=== PATIENT | male | born 1950 | race Caucasian/White ===

== ENCOUNTER 2016-07-07 08:55 | Observation (INO) | payer OTHER ==
[2016-07-07] MEDS ORDERED: PROMETHAZINE HCL 12.5 MG in DEXTROSE 5 % IN WATER 50 ML IV ONE ×2 (09:26)
[2016-07-07 09:53] LABS: Prothrombin Time (Patient) 18.9 Seconds (9.4-11.4)
[2016-07-07 09:58] LABS: INR 1.82 INR (0.90-1.10)
[2016-07-07 10:00] LABS: Hematocrit 29.4 % (42.0-52.0); Hemoglobin 9.4 gm/dL (13.5-18.0); Mean Corpuscular Hemoglobin 27.2 pg (27-31); Mean Platelet Volume 10.3 fl (6.0-9.5); Neutrophil # 5.5 K/mm3 (1.3-6.0); Neutrophil % 74.2 % (42-75.0); Platelet Count 468 K/mm3 (150-450); Red Blood Count 3.46 M/mm3 (4.7-6.0); Red Cell Distribution Width 15.8 % (11.5-14.0); White Blood Count 7.4 K/mm3 (4.0-10.5)
[2016-07-07 10:17] LABS: ALT 28 U/L (19-67); AST 27 U/L (0-48); Albumin * 3.5 gm/dl (3.4-5.0); Alkaline Phosphatase * 111 U/L (50-170); Anion Gap 17.8 mmol/L (6.8-13.8); BUN/Creatinine Ratio 28.3 (9.0-21.6); Bilirubin, Total 0.6 mg/dL (0.0-1.1); Blood Urea Nitrogen 89 mg/dL (6-23); Ca. Corrected For Albumin 11.5 mg/dL (8.4-10.2); Calcium * 11.4 mg/dL (7.9-10.9); Carbon Dioxide 26.6 mmol/L (24-32.6); Chloride 98 mmol/L (97-106); Glucose * 198 mg/dL (70-110); Lipase 181 U/L (73-393); Potassium 5.4 mmol/L (3.4-4.6); Sodium 137 mmol/L (132-142)
[2016-07-07 10:20] LABS: Troponin I Less than 0.017 ng/ml (0.00-0.10)
[2016-07-07 11:01] LABS: Urine Bilirubin Negative (NEGATIVE); Urine Blood Negative /ul (NEGATIVE); Urine Ketone Negative (NEGATIVE); Urine Nitrite Negative (NEGATIVE); Urine Protein Negative (NEGATIVE); Urine Urobilinogen Normal (NORMAL); Urine pH 5.5 pH (5.0-7.0)
[2016-07-07 11:13] LABS: Urine Appearance Clear; Urine Bacteria None Seen; Urine Color Yellow; Urine RBC None Seen /hpf (0-5); Urine WBC None Seen /hpf (0-5)
[2016-07-07] MEDS ORDERED: FUROSEMIDE 10 MG/ML VIAL IV ONE (12:10)
[2016-07-07] MEDS ORDERED: FUROSEMIDE 10 MG/ML VIAL ONE (12:11)
--- NOTE | 2016-07-07 12:32 | ERNOTE ---
Dyspnea - Date Date of Service: 07/07/16 - General Presenting Symptoms: shortness of breath Time Seen by Provider: 07/07/16 09:12 Source: patient Exam Limitations: no limitations - Immun/Allergies/Home Medications Immunizations: IMMUNIZATION HX Immunizations Up to Date Yes History of Influenza Vaccine Yes Hx Pneumococcal Vaccination Yes Allergies/Adverse Reactions: Allergies oxycodone Adverse Reaction (Verified 07/07/16 09:05) Other Home Medications: HOME MEDICATIONS Ascorbic Acid [Vitamin C] 500 mg PO DAILY 05/24/14 [Last Taken Unknown] Aspirin 81 mg PO DAILY 05/24/14 [Last Taken Unknown] Atorvastatin Calcium [Lipitor] 80 mg PO DAILY 05/24/14 [Last Taken Unknown] Cyanocobalamin (Vitamin B-12) [Vitamin B-12] 250 mg PO DAILY 05/24/14 [Last Taken Unknown] Metformin HCl [Glumetza] 1,000 mg PO BID 05/24/14 [Last Taken Unknown] Multivitamin [Multi Vitamin Daily] 1 tab PO DAILY 05/24/14 [Last Taken Unknown] Nitroglycerin 0.4 mg SL Q5MIN 05/24/14 [Last Taken Unknown] PARoxetine HCL [Paxil] 20 mg PO DAILY 05/24/14 [Last Taken Unknown] Sildenafil Citrate [Viagra] 25 mg PO DAILY PRN 05/24/14 [Last Taken Unknown] Furosemide [Lasix] 40 mg PO BID 01/29/15 [Last Taken Unknown] Potassium Chloride [Klor-Con 10] 10 meq PO BID 01/29/15 [Last Taken Unknown] Sotalol HCl [Betapace] 120 mg PO BID 01/29/15 [Last Taken Unknown] Warfarin Sodium 7.5 mg PO MOWEFRSA 01/29/15 [Last Taken Unknown] Warfarin Sodium [Coumadin] 5 mg PO SUTUTH 01/29/15 [Last Taken Unknown] Chlorthalidone [Hygroton] 25 mg PO DAILY 06/29/15 [Last Taken Unknown] Fluticasone Propionate [Flonase] 2 sprays ANGELA QDIPM PRN 06/29/15 [Last Taken Unknown] Insulin Lispro [Humalog] 40 unit SQ AC 06/29/15 [Last Taken Unknown] amLODIPine BESYLATE [Norvasc] 10 mg PO DAILY 06/29/15 [Last Taken Unknown] Ondansetron [Zofran Odt] 4 mg PO Q6H PRN #20 tab 09/10/15 [Last Taken Unknown] Docusate Sodium 100 mg PO BID 07/02/16 [Last Taken Unknown] Hydromorphone 10 mg/50 ml-Ns 2 mg PO Q4H PRN 07/02/16 [Last Taken Unknown] Lisinopril [Zestril] 40 mg PO DAILY 07/07/16 [Last Taken Unknown] - History of Present Illness Narrative: Patient 2 weeks postoperative from knee surgery at [facility]. Over the last week he has been having increased generalized weakness, nausea, decreased oral intake and increased exertional SOB over the last 3 days. Has not seen anyone else for this. SOB worse with exertion. no acute onset of Sx. No fever. No CP. No acute abdominal pain. Severity: moderate Initiating event: Reports: other - post-operative 2 weeks Frequency of episodes: Reports: no prior episodes Modifying Factors - (Improves): Reports: other - SOB better with rest. Modifying Factors (Worsens): Reports: activity Associated Symptoms-Dyspnea: Reports: other - incerased LE swellain. Denies: fever/chills, chest pain/discomfort Review of Systems - Review of Systems Constitutional: Absent: fever EYE: Present: no symptoms reported Respiratory: Present: shortness of breath. Absent: cough Cardiology: Absent: chest pain Gastrointestinal/Abdominal: Present: nausea. Absent: abdominal pain Genitourinary: Absent: dysuria All Other Systems: All systems neg except as marked - Patient's Past Medical History Patient History - Medical: Arthritis, Diabetes Type 2 Patient History - Cardiac/Respiratory: Coronary Heart Disease, Hypertension, Hyperlipidemia, TIA Patient History - Cancer: No Hx of Cancer Patient History - Surgical Procedures: Cataracts, Coronary Bypass Surgery - Family History Mother Family History - Medical: Family History - Cardiac/Respiratory: CVA/Stroke, Myocardial Infarction Father Family History - Medical: Family History - Cardiac/Respiratory: History Unknown - Social History Living Situations: home Alcohol Use: none Drug Use: none Physical Exam - Physical Exam General Appearance: Present: alert, no apparent distress Eye Exam: Normal inspection: bilateral, PERRL: bilateral Ears, Nose, Throat: Present: normal ENT inspection Neck: Present: normal inspection Respiratory: Present: no respiratory distress, normal breath sounds, no accessory muscle use Cardiovascular/Chest: Present: regular rate, rhythm Gastrointestinal/Abdominal: Present: normal bowel sounds, nontender, soft, no organomegaly Back Exam: Absent: CVA tenderness (R), CVA tenderness (L) Extremity Exam: Present: other - bandages in place left knee. Edema noted bilaterally. nothgin clinically would suggest acute DVT. Neurological Exam: Present: alert, no motor/sensory deficits Skin Exam: Present: other - no evidence of cellulitis ED Progress - Results and Orders Patient's Lab Results:: I have reviewed the patient's lab results. - Vital Signs Patient's Vital Signs:: I have reviewed the patient's vital signs. Vital Signs: Vital Signs 07/07/16 07/07/16 07/07/16 09:00 09:16 09:33 Temperature 35.5 C L Pulse Rate 75 73 65 Respiratory 12 12 Rate Blood Pressure 94/52 119/43 O2 Sat by Pulse 96 96 Oximetry 07/07/16 07/07/16 07/07/16 09:41 10:02 10:23 Temperature Pulse Rate 63 64 63 Respiratory 18 13 15 Rate Blood Pressure 117/46 126/46 125/54 O2 Sat by Pulse 94 95 96 Oximetry 07/07/16 07/07/16 07/07/16 11:00 11:30 12:10 Temperature Pulse Rate 90 91 89 Respiratory 19 15 23 H Rate Blood Pressure 110/45 123/47 129/49 O2 Sat by Pulse 93 94 93 Oximetry 07/07/16 12:16 Temperature Pulse Rate 89 Respiratory Rate Blood Pressure 129/49 O2 Sat by Pulse Oximetry - EKG EKG: NSR EKG read: Interp. by me EKG Comments: NSR rate 67. non-specific ST/T wave changes, nothign to suggest STEMI. - X-Ray X-Ray #1 X-Ray: chest Interpretation: Reviewed by me X-ray Comments: radiology report reviewed - Progress/Reassessment Chief Complaint: Dyspnea Progress:: Re-examined Progress Note-Subjective: 07/07/16 12:31 I discussed the case with Dr Joshua. Given the increased BNP and renal insuff he recommends Lasix 80mg IV X 1 then admit obs. Patienbt agreeable to staying here for logistical reasons. Departure Clinical Impression: CHF (congestive heart failure), Renal insufficiency - Departure Disposition: [facility] Condition: Stable
[2016-07-07] MEDS ORDERED: SILDENAFIL CITRATE 25 MG PO PRN (13:25)
[2016-07-07] MEDS ORDERED: FLUTICASONE PROPIONATE 120 SPRAY INHALER NS PRN (13:25)
[2016-07-07] MEDS ORDERED: ACETAMINOPHEN 325 MG TABLET PO PRN (13:28)
[2016-07-07] MEDS ORDERED: NITROGLYCERIN 0.4 MG/TAB BTL SL PRN (13:30)
[2016-07-07] MEDS ORDERED: WARFARIN SODIUM 7.5 MG TABLET PO SCH (17:00)
[2016-07-07] MEDS: INSULIN LISPRO 100 UNITS/ML VIAL SC SCH (17:21)
--- NOTE | 2016-07-07 17:54 | HP ---
Chief Complaint - Chief Complaint Date of Service: 07/07/16 Time of Service: 20:12 Chief Complaint: Short of breath History of Present Illness: This a 66 y/o man who is 2 weeks postoperative from left knee surgery at [facility]. Over the last week he has been having increased generalized weakness, nausea, decreased oral intake and increased exertional SOB, and especially worsening over the last 3 days. For this reason he presented today to the [facility] ER. Has not seen anyone else for this. The SOB is worse with exertion. There was no acute onset of of these symptoms. No fever. No CP. No acute abdominal pain. He has also had orthopnea. About eighteen months ago, he had his right knee replaced. He lives at home with his . - Patient's Past Medical History Patient History - Medical: Arthritis, Diabetes Type 2 Insulin Dependent, Depression, Other - carotid artery disease, worse on the right.. Bilateral hearing loss. Patient History - Cardiac/Respiratory: Coronary Heart Disease, Hypertension, Hyperlipidemia, Myocardial Infarction, TIA Patient History - Cancer: No Hx of Cancer Patient History - Surgical Procedures: Cataracts, Coronary Bypass Surgery, Total Knee Replacement, Other - middle ear surgery - Family History Mother Family History - Medical: Family History - Cardiac/Respiratory: CVA/Stroke, Myocardial Infarction Father Family History - Medical: Family History - Cardiac/Respiratory: History Unknown - Social History Living Situations: home Smoking Status: Former smoker Have you smoked in the past 12 months: No Do you dip or chew tobacco: No Alcohol Use: occasionally Drug Use: none Review Of Systems (GEN) - Review of Systems Generalized/Overall Review: Present: Malaise, Fatigue EENTM: Present: No Symptoms Reported Respiratory: Present: Shortness of Breath, Orthopnea Cardiac: Present: Edema Abdominal: Present: No Symptoms Reported Genitourinary: Present: No Symptoms Reported Musculoskeletal: Present: Other - left knee pain, post op two weeks. Neurological: Present: No Symptoms Reported Skin: Present: No Symptoms Reported Endocrine: Present: No Symptoms Reported Misc: All systems neg except as marked Allergies/Adverse Reactions: Allergies Allergy/AdvReac Type Severity Reaction Status Date / Time oxycodone AdvReac Other Verified 07/07/16 13:39 Home Medications: HOME MEDICATIONS Ascorbic Acid [Vitamin C] 500 mg PO DAILY 05/24/14 [Last Taken Unknown] Aspirin 81 mg PO DAILY 05/24/14 [Last Taken Unknown] Atorvastatin Calcium [Lipitor] 80 mg PO HS 05/24/14 [Last Taken Unknown] Cyanocobalamin (Vitamin B-12) [Vitamin B-12] 250 mg PO DAILY 05/24/14 [Last Taken Unknown] Metformin HCl [Glumetza] 1,000 mg PO BID 05/24/14 [Last Taken Unknown] Multivitamin [Multi Vitamin Daily] 1 tab PO DAILY 05/24/14 [Last Taken Unknown] Nitroglycerin 0.4 mg SL Q5MIN PRN 05/24/14 [Last Taken Unknown] PARoxetine HCL [Paxil] 20 mg PO DAILY 05/24/14 [Last Taken Unknown] Sildenafil Citrate [Viagra] 50 mg PO DAILY PRN 05/24/14 [Last Taken Unknown] Furosemide [Lasix] 40 mg PO BID 01/29/15 [Last Taken Unknown] Potassium Chloride [Klor-Con 10] 10 meq PO BID 01/29/15 [Last Taken Unknown] Sotalol HCl [Betapace] 80 mg PO DAILY 01/29/15 [Last Taken Unknown] Warfarin Sodium 7.5 mg PO SUMOTUWEFRSA 01/29/15 [Last Taken Unknown] Warfarin Sodium [Coumadin] 10 mg PO TH 01/29/15 [Last Taken Unknown] Chlorthalidone [Hygroton] 25 mg PO DAILY 06/29/15 [Last Taken Unknown] Fluticasone Propionate [Flonase] 2 sprays ANGELA QDIPM PRN 06/29/15 [Last Taken Unknown] Insulin Lispro [Humalog] 40 unit SQ AC 06/29/15 [Last Taken Unknown] amLODIPine BESYLATE [Norvasc] 10 mg PO DAILY 06/29/15 [Last Taken Unknown] Docusate Sodium [Colace] 100 mg PO BID PRN 07/07/16 [Last Taken Unknown] Fexofenadine HCl [Tanisha Allergy] 180 mg PO DAILY 07/07/16 [Last Taken Unknown] HYDROmorphone HCL [Dilaudid] 2 mg PO Q4H PRN 07/07/16 [Last Taken Unknown] Insulin Detemir [Levemir Flextouch] 62 unit SQ QAM 07/07/16 [Last Taken Unknown] Insulin Detemir [Levemir Flextouch] 64 unit SQ QPM 07/07/16 [Last Taken Unknown] Insulin Detemir [Levemir] 55 unit SQ HS 07/07/16 [Last Taken Unknown] Insulin Detemir [Levemir] 57 unit SQ DAILY 07/07/16 [Last Taken Unknown] Lisinopril [Zestril] 40 mg PO DAILY 07/07/16 [Last Taken Unknown] Exam - Exam Vital Signs: Vital Signs - Last Taken Selected Entries 07/07/16 19:29 Temperature 36.8 C Temperature Oral Source Pulse Rate 71 Respiratory 18 Rate Blood Pressure 135/52 O2 Sat by Pulse 96 Oximetry Oxygen Delivery Room Air Method Constitutional: Present: Alert, Oriented x3, Cooperative, Well developed, No distress, Obese ENT Exam: Present: normal ENT inspection, pharynx normal, TMs normal, hard of hearing Eye Exam: bilateral eye: normal inspection, PERRL, EOMI Neck: Present: full range of motion, normal inspection Back Exam: Present: normal inspection, no CVA tenderness, no vertebral tenderness Respiratory: Present: lungs clear, no respiratory distress Cardiovascular/Chest: Present: regular rate, rhythm, no murmur Abdomen: Present: Normal bowel sounds, soft, nontender, nondistended, no rebound tenderness, no hepatospenomegaly, no masses, obese Extremity: Present: pedal edema, other - dressing on left knee, brace on left knee Skin Exam: Present: normal color, warm/dry, no cyanosis Lymphatic: Present: no adenopathy Neurologic: Present: normal cerebellar test, alert Appearance: Present: appropriate appearance, appropriate insight, neat, no memory impairment Eye contact: Present: cooperative, good eye contact, normal speech Thoughts: Present: normal thought pattern Diagnostic Studies: Laboratory Results WBC 7.4 K/mm3 (4.0-10.5) 07/07/16 09:35 RBC 3.46 M/mm3 (4.7-6.0) L 07/07/16 09:35 Hgb 9.4 gm/dL (13.5-18.0) L 07/07/16 09:35 Hct 29.4 % (42.0-52.0) L 07/07/16 09:35 MCV 85.0 fl (78-100) 07/07/16 09:35 MCH 27.2 pg (27-31) 07/07/16 09:35 MCHC 32.0 g/dl (32-36) 07/07/16 09:35 RDW 15.8 % (11.5-14.0) H 07/07/16 09:35 Plt Count 468 K/mm3 (150-450) H 07/07/16 09:35 MPV 10.3 fl (6.0-9.5) H 07/07/16 09:35 Immature Gran % (Auto) 0.70 % (0.001-0.429) H 07/07/16 09:35 Immature Gran # (Auto) 0.05 K/mm3 (0.000-0.0310) H 07/07/16 09:35 Neutrophils % 74.2 % (42-75.0) 07/07/16 09:35 Lymphocytes % 14.1 % (20-51) L 07/07/16 09:35 Monocytes % 7.3 % (0.0-9) 07/07/16 09:35 Eosinophils % 3.2 % (0.0-3.0) H 07/07/16 09:35 Basophils % 0.5 % (0.0-1.0) 07/07/16 09:35 Nucleated RBC % 0.0 k/mm3 (0-1) 07/07/16 09:35 Neutrophils # 5.5 K/mm3 (1.3-6.0) 07/07/16 09:35 Lymphocytes # 1.1 k/mm3 (1.5-3.5) L 07/07/16 09:35 Monocytes # 0.5 k/mm3 (0.0-1.0) 07/07/16 09:35 Eosinophils # 0.2 k/mm3 (0.0-0.7) 07/07/16 09:35 Absolute Basophils 0.0 k/mm3 (0.0-0.1) 07/07/16 09:35 PT 18.9 Seconds (9.4-11.4) H 07/07/16 09:35 INR (Anticoag Therapy) 1.82 INR (0.90-1.10) H 07/07/16 09:35 Sodium 137 mmol/L (132-142) 07/07/16 09:35 Plasma Sodium 139 mmol/L (130-142) 07/07/16 09:35 Potassium 5.4 mmol/L (3.4-4.6) H D 07/07/16 09:35 Chloride 98 mmol/L (97-106) 07/07/16 09:35 Carbon Dioxide 26.6 mmol/L (24-32.6) 07/07/16 09:35 Anion Gap 17.8 mmol/L (6.8-13.8) H 07/07/16 09:35 BUN 89 mg/dL (6-23) H D 07/07/16 09:35 Creatinine 3.14 mg/dL (0.4-1.4) H D 07/07/16 09:35 Est GFR (Non-Af Amer) 21 mL/min (60-130) L D 07/07/16 09:35 BUN/Creatinine Ratio 28.3 (9.0-21.6) H 07/07/16 09:35 Random Glucose 198 mg/dL (70-110) H 07/07/16 09:35 Lactic Acid, Venous 1.6 mmol/L (0.4-2.0) 07/07/16 13:00 Calcium 11.4 mg/dL (7.9-10.9) H 07/07/16 09:35 Calcium Adj for Albumin 11.5 mg/dL (8.4-10.2) H 07/07/16 09:35 Total Bilirubin 0.6 mg/dL (0.0-1.1) 07/07/16 09:35 AST 27 U/L (0-48) 07/07/16 09:35 ALT 28 U/L (19-67) 07/07/16 09:35 Alkaline Phosphatase 111 U/L (50-170) 07/07/16 09:35 Troponin I Less than 0.017 ng/ml (0.00-0.10) 07/07/16 09:35 B-Natriuretic Peptide 1534 pg/mL (5-175) H 07/07/16 09:35 Total Protein 7.0 gm/dL (6.2-8.2) 07/07/16 09:35 Albumin 3.5 gm/dl (3.4-5.0) 07/07/16 09:35 Lipase 181 U/L (73-393) 07/07/16 09:35 Urine Color Yellow 07/07/16 10:47 Urine Appearance Clear 07/07/16 10:47 Urine pH 5.5 pH (5.0-7.0) 07/07/16 10:47 Ur Specific Comfort 1.020 SP.GR. (1.005-1.030) 07/07/16 10:47 Urine Protein Negative mg/dL (NEGATIVE) 07/07/16 10:47 Urine Glucose (UA) Negative mg/dL (NEGATIVE) 07/07/16 10:47 Urine Ketones Negative mg/dL (NEGATIVE) 07/07/16 10:47 Urine Blood Negative /ul (NEGATIVE) 07/07/16 10:47 Urine Nitrate Negative (NEGATIVE) 07/07/16 10:47 Urine Bilirubin Negative mg/dl (NEGATIVE) 07/07/16 10:47 Urine Urobilinogen Normal EU/dl (NORMAL) 07/07/16 10:47 Ur Leukocyte Esterase Negative /ul (NEGATIVE) 07/07/16 10:47 Urine RBC None seen /hpf (0-5) 07/07/16 10:47 Urine WBC None seen /hpf (0-5) 07/07/16 10:47 Ur Epithelial Cells 5-10 /hpf (0-5) H 07/07/16 10:47 Urine Bacteria None seen (NONE) 07/07/16 10:47 Urine Culture Comments No culture indicated 07/07/16 10:47 Assessment/Plan - Narrative Narrative: IV lasix. Adjust meds. Follow labs. Estimate stay of at least one midnight. - Assessment/Plan (1) CAD (coronary artery disease) Problem: Chronic Qualifiers: Coronary Disease-Associated Artery/Lesion type: bypass graft [place] vs. transplanted heart: [place] heart Associated angina: without angina Qualified Code(s): I25.810 - Atherosclerosis of coronary artery bypass graft(s) without angina pectoris (2) Osteoarthritis Problem: Chronic Qualifiers: Osteoarthritis location: multiple joints Osteoarthritis type: primary Qualified Code(s): M15.0 - Primary generalized (osteo)arthritis (3) CVA (cerebral vascular accident) Problem: Chronic Qualifiers: CVA mechanism: unspecified Qualified Code(s): I63.9 - Cerebral infarction, unspecified (4) Myocardial infarct, old Problem: Chronic (5) CHF (congestive heart failure) Problem: Acute Qualifiers: Congestive heart failure type: unspecified congestive heart failure type Congestive heart failure chronicity: acute on chronic Qualified Code(s): I50.9 - Heart failure, unspecified (6) Renal insufficiency Problem: Acute (7) S/P total knee arthroplasty Problem: Acute Qualifiers: Laterality: left Qualified Code(s): Z96.652 - Presence of left artificial knee joint
[2016-07-07] MEDS ORDERED: INSULIN DETEMIR 100 UNITS/ML VIAL SC SCH (21:00)
[2016-07-07] MEDS ORDERED: ROSUVASTATIN CALCIUM 10 MG TABLET PO SCH (21:00)
[2016-07-07] MEDS: SOTALOL HCL 80 MG TABLET PO SCH (22:06)
[2016-07-07] MEDS: FUROSEMIDE 10 MG/ML VIAL IV SCH (22:07)
[2016-07-07] MEDS: DOCUSATE SODIUM 100 MG CAPSULE PO SCH (22:08)
[2016-07-07] MEDS ORDERED: INSULIN DETEMIR 100 UNITS/ML VIAL SC ONE (22:14)
[2016-07-08 06:11] LABS: Hematocrit 30.2 % (42.0-52.0); Hemoglobin 9.7 gm/dL (13.5-18.0); Mean Cell Volume 83.7 fl (78-100); Mean Corpuscular Hemoglobin 26.9 pg (27-31); Mean Corpuscular Hgb Conc 32.1 g/dl (32-36); Mean Platelet Volume 9.5 fl (6.0-9.5); Neutrophil # 5.7 K/mm3 (1.3-6.0); Neutrophil % 68.6 % (42-75.0); Platelet Count 440 K/mm3 (150-450); Red Blood Count 3.61 M/mm3 (4.7-6.0); Red Cell Distribution Width 15.6 % (11.5-14.0); White Blood Count 8.3 K/mm3 (4.0-10.5)
[2016-07-08 06:33] LABS: Prothrombin Time (Patient) 20.3 Seconds (9.4-11.4)
[2016-07-08 06:39] LABS: INR 1.95 INR (0.90-1.10)
[2016-07-08 06:48] LABS: Anion Gap 15.7 mmol/L (6.8-13.8); BUN/Creatinine Ratio 30.8 (9.0-21.6); Calcium * 10.2 mg/dL (7.9-10.9); Carbon Dioxide 27.2 mmol/L (24-32.6); Estimated Creat Clear 26.4; Potassium 3.9 mmol/L (3.4-4.6); T4 Free * 1.47 ng/dL (0.76-1.46); TSH * 0.691 uIU/mL (0.358-3.74)
[2016-07-08] MEDS: INSULIN LISPRO 100 UNITS/ML VIAL SC SCH (06:49)
[2016-07-08] MEDS ORDERED: ASPIRIN 81 MG TABLET.DR PO SCH (09:00)
[2016-07-08] MEDS ORDERED: amLODIPine BESYLATE 10 MG TABLET PO SCH (09:00)
[2016-07-08] MEDS ORDERED: CYANOCOBALAMIN 1,000 MCG TABLET PO SCH (09:00)
[2016-07-08] MEDS ORDERED: INSULIN DETEMIR 100 UNITS/ML VIAL SC SCH (09:00)
[2016-07-08] MEDS ORDERED: LISINOPRIL 40 MG TABLET PO SCH (09:00)
[2016-07-08] MEDS ORDERED: MULTIVITAMINS 1 CAP CAPSULE PO SCH (09:00)
[2016-07-08] MEDS ORDERED: PARoxetine HCL 20 MG TABLET PO SCH (09:00)
[2016-07-08 09:11] VITALS: BP 105/49
[2016-07-08] MEDS: FUROSEMIDE 10 MG/ML VIAL IV SCH ×2 (09:30→10:38)
[2016-07-08] MEDS: SOTALOL HCL 80 MG TABLET PO SCH (09:32)
[2016-07-08] MEDS: DOCUSATE SODIUM 100 MG CAPSULE PO SCH (09:45)
--- NOTE | 2016-07-08 10:01 | DS ---
(1) CAD (coronary artery disease) Problem: Chronic Qualifiers: Coronary Disease-Associated Artery/Lesion type: bypass graft [place] vs. transplanted heart: [place] heart Associated angina: without angina Qualified Code(s): I25.810 - Atherosclerosis of coronary artery bypass graft(s) without angina pectoris (2) Osteoarthritis Problem: Chronic Qualifiers: Osteoarthritis location: multiple joints Osteoarthritis type: primary Qualified Code(s): M15.0 - Primary generalized (osteo)arthritis (3) CVA (cerebral vascular accident) Problem: Chronic Qualifiers: CVA mechanism: unspecified Qualified Code(s): I63.9 - Cerebral infarction, unspecified (4) Myocardial infarct, old Problem: Chronic (5) CHF (congestive heart failure) Diagnosis(s): Echo results from this hospital stay still pending. Problem: Acute Qualifiers: Congestive heart failure type: unspecified congestive heart failure type Congestive heart failure chronicity: acute on chronic Qualified Code(s): I50.9 - Heart failure, unspecified (6) Renal insufficiency Problem: Acute (7) S/P total knee arthroplasty Problem: Acute Qualifiers: Laterality: left Qualified Code(s): Z96.652 - Presence of left artificial knee joint Description of Stay: Treated with IV lasix. Diuresed well and improved by symptoms and signs. Much better today. Echo done while here, results pending. Procedures Performed: none Discharge Disposition: Home self care Disposition: Home self-care Condition: Good Discharge Activity: Activity as tolerated Discharge Diet: Consistent carbs, Low salt Problem Oriented Discharge Instructions to Patient/Family: CHF Patient Instructions, Heart Failure, [id number] Additional Patient Instructions (free text): Followup with your primary care doctor in 1 week. CBC BMP and protime in 4 days. Prescriptions (Any new or edited meds): Furosemide [Lasix] 80 mg PO BID #60 tablet Potassium Chloride [Klor-Con 10] 20 meq PO BID #60 tablet.er Warfarin Sodium [Coumadin] 5 mg PO DAILY #1 tablet Warfarin Sodium [Coumadin] 7.5 mg PO DAILY #1 tablet Complete Home Medications List: Complete Home Medication List: Ascorbic Acid [Vitamin C] 500 mg PO DAILY 05/24/14 Aspirin 81 mg PO DAILY 05/24/14 Atorvastatin Calcium [Lipitor] 80 mg PO HS 05/24/14 Cyanocobalamin (Vitamin B-12) [Vitamin B-12] 250 mg PO DAILY 05/24/14 Multivitamin [Multi-Vitamin Daily] 1 tab PO DAILY 05/24/14 Nitroglycerin 0.4 mg SL Q5MIN PRN 05/24/14 PARoxetine HCL [Paxil] 20 mg PO DAILY 05/24/14 Sildenafil Citrate [Viagra] 50 mg PO DAILY PRN 05/24/14 Sotalol HCl [Betapace] 80 mg PO DAILY 01/29/15 Fluticasone Propionate [Flonase] 2 sprays ANGELA QDIPM PRN 06/29/15 Insulin Lispro [Humalog Kwikpen U-100] 40 unit SQ AC 06/29/15 amLODIPine BESYLATE [Norvasc] 10 mg PO DAILY 06/29/15 Docusate Sodium [Colace] 100 mg PO BID PRN 07/07/16 Fexofenadine HCl [Tanisha Allergy] 180 mg PO DAILY 07/07/16 Insulin Detemir [Levemir] 55 unit SQ HS 07/07/16 Insulin Detemir [Levemir] 57 unit SQ DAILY 07/07/16 Lisinopril [Zestril] 40 mg PO DAILY 07/07/16 Acetaminophen [Tylenol] 650 mg PO QID PRN #0 tablet 07/08/16 Docusate Sodium [Colace] 100 mg PO BID capsule 07/08/16 Furosemide [Lasix] 80 mg PO BID #60 tablet 07/08/16 Potassium Chloride [Klor-Con 10] 20 meq PO BID #60 tablet.er 07/08/16 Sotalol HCl [Betapace] 120 mg PO BID tablet 07/08/16 Warfarin Sodium [Coumadin] 5 mg PO DAILY #1 tablet 07/08/16 Warfarin Sodium [Coumadin] 7.5 mg PO DAILY #1 tablet 07/08/16
--- NOTE | 2016-07-08 12:56 | ECHO ---
This report is available in the EMR
[2016-07-08] MEDS ORDERED: WARFARIN SODIUM 5 MG TABLET PO SCH (17:00)
== END 2016-07-08 11:02 | disposition home or self-care (01) ==
LOC: ER 08:55 → MS 12:18
PROVIDERS: ADMIT Allergy & Immunology; ATTEND Allergy & Immunology
DX: I50.9 Heart failure, unspecified (principal); N28.9 Disorder of kidney and ureter, unspecified; Z98.890 Other specified postprocedural states; I25.810 Atherosclerosis of coronary artery bypass graft(s) without angina pectoris; M15.0 Primary generalized (osteo)arthritis; Z96.652 Presence of left artificial knee joint; Z86.73 Personal history of transient ischemic attack (TIA), and cerebral infarction without residual deficits; I25.2 Old myocardial infarction; Z87.891 Personal history of nicotine dependence; Z95.1 Presence of aortocoronary bypass graft; E11.9 Type 2 diabetes mellitus without complications; Z79.4 Long term (current) use of insulin; Z79.84 Long term (current) use of oral hypoglycemic drugs; Z79.01 Long term (current) use of anticoagulants; Z79.82 Long term (current) use of aspirin

== ENCOUNTER 2017-02-24 04:21 | Emergency (ER) | payer OTHER ==
--- NOTE | 2017-02-24 05:55 | ERNOTE ---
Time Seen by Provider: 02/24/17 05:38 Stated Complaint: SINUS PRESSURE Presenting Symptoms:: sore throat, runny nose Source: patient Exam Limitations: no limitations Immunizations: IMMUNIZATION HX Immunizations Up to Date Yes History of Influenza Vaccine Yes Hx Pneumococcal Vaccination Yes Allergies/Adverse Reactions: Allergies oxycodone Adverse Reaction (Verified 02/24/17 04:31) Other Home Medications: HOME MEDICATIONS Ascorbic Acid [Vitamin C] 500 mg PO DAILY 05/24/14 [Last Taken Unknown] Aspirin 81 mg PO DAILY 05/24/14 [Last Taken Unknown] Atorvastatin Calcium [Lipitor] 80 mg PO HS 05/24/14 [Last Taken Unknown] Cyanocobalamin (Vitamin B-12) [Vitamin B-12] 250 mg PO DAILY 05/24/14 [Last Taken Unknown] Multivitamin [Multi-Vitamin Daily] 1 tab PO DAILY 05/24/14 [Last Taken Unknown] Nitroglycerin 0.4 mg SL Q5MIN PRN 05/24/14 [Last Taken Unknown] PARoxetine HCL [Paxil] 20 mg PO DAILY 05/24/14 [Last Taken Unknown] Sildenafil Citrate [Viagra] 50 mg PO DAILY PRN 05/24/14 [Last Taken Unknown] Sotalol HCl [Betapace] 80 mg PO DAILY 01/29/15 [Last Taken Unknown] Fluticasone Propionate [Flonase] 2 sprays ANGELA QDIPM PRN 06/29/15 [Last Taken Unknown] Insulin Lispro [Humalog Kwikpen U-100] 40 unit SQ AC 06/29/15 [Last Taken Unknown] amLODIPine BESYLATE [Norvasc] 10 mg PO DAILY 06/29/15 [Last Taken Unknown] Docusate Sodium [Colace] 100 mg PO BID PRN 07/07/16 [Last Taken Unknown] Fexofenadine HCl [[place] Allergy] 180 mg PO DAILY 07/07/16 [Last Taken Unknown] Insulin Detemir [Levemir] 55 unit SQ HS 07/07/16 [Last Taken Unknown] Insulin Detemir [Levemir] 57 unit SQ DAILY 07/07/16 [Last Taken Unknown] Lisinopril [Zestril] 40 mg PO DAILY 07/07/16 [Last Taken Unknown] Acetaminophen [Tylenol] 650 mg PO QID PRN #0 tablet 07/08/16 [Last Taken Unknown ] Docusate Sodium [Colace] 100 mg PO BID capsule 07/08/16 [Last Taken Unknown] Furosemide [Lasix] 80 mg PO BID #60 tablet 07/08/16 [Last Taken Unknown] Potassium Chloride [Klor-Con 10] 20 meq PO BID #60 tablet.er 07/08/16 [Last Taken Unknown] Sotalol HCl [Betapace] 120 mg PO BID tablet 07/08/16 [Last Taken Unknown] Warfarin Sodium [Coumadin] 5 mg PO DAILY #1 tablet 07/08/16 [Last Taken Unknown] Warfarin Sodium [Coumadin] 7.5 mg PO DAILY #1 tablet 07/08/16 [Last Taken Unknown] - History of Present Ilness Narrative: Pt feels his allergies are getting worse. Has not been taking his [place] Review of Systems - Review of Systems Constitutional: Absent: fever, chills EYE: Present: no symptoms reported ENT: Present: See HPI. Absent: ear pain Respiratory: Present: cough. Absent: shortness of breath Cardiology: Absent: chest pain Gastrointestinal/Abdominal: Absent: nausea, vomiting Musculoskeletal: Absent: muscle pain, muscle stiffness Skin: Absent: rash Neurological: Present: no symptoms reported Endocrine: Present: no symptoms reported Hematologic/Lymphatic: Present: no symptoms reported Psych: Present: no symptoms reported - Patient's Past Medical History Patient History - Medical: Arthritis, Diabetes Type 2 Insulin Dependent, Depression, Other Patient History - Cardiac/Respiratory: Angina, Atrial Fibrillation, Arrhythmias , Coronary Heart Disease, CVA/Stroke, Hypertension, Myocardial Infarction, TIA, Other Patient History - Cancer: No Hx of Cancer Patient History - Surgical Procedures: Cataracts, Coronary Bypass Surgery, Total Knee Replacement, Other Patient History - Other: None - Family History Mother Family History - Medical: Family History - Cardiac/Respiratory: CVA/Stroke, Myocardial Infarction Father Family History - Medical: Family History - Cardiac/Respiratory: History Unknown - Social History Living Situations: home Abuse History: No History of abuse Psych History: Hx of Depression Smoking Status: Former smoker Alcohol Use: none Drug Use: none - Immunizations Immunizations Up to Date: Yes Hx Pneumococcal Vaccination: Yes History of Influenza Vaccine: Yes Physical Exam - Physical Exam General Appearance: Present: wd/wn, alert, no apparent distress Head Exam: Present: normal inspection, no evidence of injury Eye Exam: Normal inspection: bilateral, PERRL: bilateral, EOMI: bilateral Ears, Nose, Throat: Present: nasal congestion, normal pharynx Neck: Present: normal inspection, nontender Respiratory: Present: no respiratory distress, normal breath sounds, lungs clear Cardiovascular/Chest: Present: regular rate, rhythm, no murmur Extremity Exam: Present: normal inspection, normal range of motion, no edema Neurological Exam: Present: alert, oriented, normal mood/affect Skin Exam: Present: normal color, warm/dry Lymphatic Exam: Present: no adenopathy ED Progress - Vital Signs Vital Signs: Vital Signs 02/24/17 04:27 Temperature 36.8 C Pulse Rate 77 Respiratory 20 Rate Blood Pressure 140/61 O2 Sat by Pulse 97 Oximetry - Progress/Reassessment Chief Complaint: Upper Respiratory Symptoms Departure - Departure Clinical Impression: Allergic rhinitis Disposition: Home self-care Condition: Good Instructions: Allergic Rhinitis Additional Instructions: Start back on your [place] and take it every day until symptoms resolve
[2017-02-24 06:04] VITALS: BP 149/57
== END 2017-02-24 06:01 | disposition home or self-care (01) ==
LOC: ER 04:21
DX: J30.9 Allergic rhinitis, unspecified (principal); I25.2 Old myocardial infarction; Z87.891 Personal history of nicotine dependence

== ENCOUNTER 2017-08-30 19:37 | Observation (INO) | payer MEDICARE, MEDICAID ==
[2017-08-30] MEDS ORDERED: METHYLPREDNISOLONE SOD SUCC/PF 125 MG/2 ML VIAL IV ONE (20:24)
[2017-08-30] MEDS ORDERED: ALBUTEROL SULFATE 2.5 MG/0.5 ML VIAL.NEB IH ONE ×2 (20:24→20:42)
[2017-08-30] MEDS ORDERED: METHYLPREDNISOLONE SOD SUCC/PF 125 MG/2 ML VIAL ONE (20:33)
--- NOTE | 2017-08-30 20:35 | ERNOTE ---
Date of Service: 08/30/17 Time Seen by Provider: 08/30/17 20:23 Stated Complaint: URI Presenting Symptoms:: cough, runny nose, fever Source: patient Immunizations: IMMUNIZATION HX Immunizations Up to Date Yes History of Influenza Vaccine Yes Hx Pneumococcal Vaccination Yes Allergies/Adverse Reactions: Allergies oxycodone Adverse Reaction (Verified 08/30/17 19:51) Other Home Medications: HOME MEDICATIONS Aspirin 81 mg PO DAILY 05/24/14 [Last Taken Unknown] Atorvastatin Calcium [Lipitor] 80 mg PO HS 05/24/14 [Last Taken Unknown] Cyanocobalamin (Vitamin B-12) [Vitamin B-12] 250 mg PO DAILY 05/24/14 [Last Taken Unknown] Multivitamin [Multi-Vitamin Daily] 1 tab PO DAILY 05/24/14 [Last Taken Unknown] Nitroglycerin 0.4 mg SL Q5MIN PRN 05/24/14 [Last Taken Unknown] PARoxetine HCL [Paxil] 20 mg PO DAILY 05/24/14 [Last Taken Unknown] Fluticasone Propionate [Flonase] 2 sprays ANGELA QDIPM PRN 06/29/15 [Last Taken Unknown] amLODIPine BESYLATE [Norvasc] 10 mg PO DAILY 06/29/15 [Last Taken Unknown] Fexofenadine HCl [Tanisha Allergy] 180 mg PO DAILY 07/07/16 [Last Taken Unknown] Lisinopril [Zestril] 40 mg PO DAILY 07/07/16 [Last Taken Unknown] Acetaminophen [Tylenol] 650 mg PO QID PRN #0 tablet 07/08/16 [Last Taken Unknown ] Furosemide [Lasix] 80 mg PO BID #60 tablet 07/08/16 [Last Taken Unknown] Potassium Chloride [Klor-Con 10] 20 meq PO BID #60 tablet.er 07/08/16 [Last Taken Unknown] Insulin Lispro [Humalog] 0 - 100 units SC ACHS 08/30/17 [Last Taken Unknown] Insulin Regular, Human [Novolin R] 50 unit IJ HS 08/30/17 [Last Taken Unknown] Warfarin Sodium [Coumadin] 7.5 mg PO 2XW 08/30/17 [Last Taken Unknown] Warfarin Sodium [Coumadin] 10 mg PO DAILY 08/30/17 [Last Taken Unknown] - History of Present Ilness Narrative: This is a 67-year-old gentleman who comes to the emergency department complaining of 2 weeks of a "cold" patient says for last couple of weeks she's had a copious runny nose with clear drainage. He says he's been coughing frequently. Over the last 48 hours he's been coughing much more. Productive green and yellow sputum. Over the last 24 hours he's also developed some dyspnea at rest. Coughing seems to be worse at night. Nothing makes it worse. He says he had a subjective fever a couple of days ago but did not take his temperature. Had a little bit of nausea this morning. No vomiting no diarrhea. Patient has a little bit of a sore throat. Eating and drinking well and urinating and defecating well. Patient does have a history of congestive heart failure and is a bit concerned that this is CHF. He did have some mild chest tightness left sided intermittently but he thinks this is from the coughing. It is markedly different from the previous times when he sat heart issues. No radiation of the pain to the back neck arm or jaw. No diaphoresis. Timing: getting worse Review of Systems - Review of Systems Constitutional: Present: See HPI, recent illness, fever EYE: Present: no symptoms reported ENT: Present: nasal drainage, sore throat Respiratory: Present: See HPI, shortness of breath, cough, wheezing Cardiology: Present: See HPI, chest pain Gastrointestinal/Abdominal: Present: See HPI, nausea Genitourinary: Present: no symptoms reported Musculoskeletal: Present: no symptoms reported Skin: Present: no symptoms reported Neurological: Present: no symptoms reported Endocrine: Present: no symptoms reported Hematologic/Lymphatic: Present: no symptoms reported Psych: Present: no symptoms reported All Other Systems: All systems neg except as marked - Patient's Past Medical History Patient History - Medical: Arthritis, Diabetes Type 2 Insulin Dependent, Depression, Other Patient History - Cardiac/Respiratory: Angina, Atrial Fibrillation, Arrhythmias , Coronary Heart Disease, CVA/Stroke, Hypertension, Myocardial Infarction, TIA, Other Patient History - Cancer: No Hx of Cancer Patient History - Surgical Procedures: Cataracts, Coronary Bypass Surgery, Total Knee Replacement, Other Patient History - Other: None - Family History Mother Family History - Medical: Family History - Cardiac/Respiratory: CVA/Stroke, Myocardial Infarction Father Family History - Medical: Family History - Cardiac/Respiratory: History Unknown - Social History Living Situations: home Abuse History: No History of abuse Psych History: Hx of Depression Smoking Status: Former smoker Do you dip or chew tobacco: No Alcohol Use: occasionally Drug Use: none - Immunizations Immunizations Up to Date: Yes Hx Pneumococcal Vaccination: Yes History of Influenza Vaccine: Yes Physical Exam - Physical Exam General Appearance: Present: wd/wn, alert, no apparent distress Head Exam: Present: normal inspection, no evidence of injury Eye Exam: Normal inspection: bilateral Ears, Nose, Throat: Present: normal ENT inspection, normal pharynx, other - no tonsillar exudate nor is there any hypertrophy Neck: Present: normal inspection, nontender Respiratory: Present: no respiratory distress, no accessory muscle use, chest nontender, expiration (prolonged), other - slightly tachypneic. This decreased air entry throughout. End expiratory wheezing throughout. Frequent cough which is bronchitic and nonproductive. No accessory muscle use.. Absent: normal breath sounds, lungs clear Cardiovascular/Chest: Present: regular rate, rhythm, other - 2/6 systolic murmur best heard over the right upper sternal border Gastrointestinal/Abdominal: Present: normal bowel sounds, nontender, nondistended, soft Rectal Exam: Present: deferred Male Genitals Exam: Present: deferred Back Exam: Present: normal inspection, normal range of motion, no CVA tenderness , no vertebral tenderness Extremity Exam: Present: normal inspection, non-tender, normal range of motion, other - perhaps a trace of pretibial edema. Absent: no edema Neurological Exam: Present: alert, oriented, normal mood/affect, no motor/ sensory deficits ED Progress - Results and Orders Patient's Lab Results:: I have reviewed the patient's lab results. - Vital Signs Patient's Vital Signs:: I have reviewed the patient's vital signs. Vital Signs: Vital Signs 08/30/17 08/30/17 19:41 20:00 Temperature 37.3 C Pulse Rate 98 99 Respiratory 26 H Rate Blood Pressure 141/67 O2 Sat by Pulse 95 Oximetry - EKG EKG: other - EKG demonstrates atrial fibrillation controlled ventricular response and 98, QRS axis is normal, no ST segment deviation to indicate acute OH - X-Ray X-Ray #1 X-Ray: chest - right middle lobe infiltrate. Really appears to be more confluence of perivascular cuffing. Interpretation: Interp. by me - Progress/Reassessment Chief Complaint: Upper Respiratory Symptoms Progress:: Re-examined Progress Note-Subjective: 08/30/17 22:10 Patient has been on a breathing treatment for an hour. He has really had no significant improvement. Plan - Plan Plan: Because he is still having such a tight chest, wheezing, oxygen saturation of 92 % on room air N think it is appropriate to keep him on the antibiotics and keep him in the hospital overnight he is okay with this plan Departure Clinical Impression: Pneumonia - Departure Disposition: [facility] swing bed (SNF) Condition: Good
[2017-08-30 20:45] LABS: Hematocrit 34.4 % (42.0-52.0); Hemoglobin 11.1 gm/dL (13.5-18.0); Mean Cell Volume 78.7 fl (78-100); Mean Corpuscular Hemoglobin 25.4 pg (27-31); Mean Corpuscular Hgb Conc 32.3 g/dl (32-36); Mean Platelet Volume 10.4 fl (6.0-9.5); Neutrophil % 86.9 % (42-75.0); Platelet Count 247 K/mm3 (150-450); Red Blood Count 4.37 M/mm3 (4.7-6.0); Red Cell Distribution Width 16.6 % (11.5-14.0); White Blood Count 13.8 K/mm3 (4.0-10.5)
[2017-08-30 21:02] LABS: ALT 23 U/L (19-67); AST 18 U/L (0-48); Albumin * 3.5 gm/dl (3.4-5.0); Alkaline Phosphatase * 109 U/L (50-170); Anion Gap 15.7 mmol/L (6.8-13.8); BUN/Creatinine Ratio 14.3 (9.0-21.6); Bilirubin, Total 0.9 mg/dL (0.0-1.1); Blood Urea Nitrogen 28 mg/dL (6-23); Ca. Corrected For Albumin 8.8 mg/dL (8.4-10.2); Calcium * 8.7 mg/dL (7.9-10.9); Carbon Dioxide 26.2 mmol/L (24-32.6); Chloride 103 mmol/L (97-106); Glucose * 171 mg/dL (70-110); Potassium 3.9 mmol/L (3.4-4.6); Sodium 141 mmol/L (132-142); Total Protein 7.3 gm/dL (6.2-8.2)
[2017-08-30] MEDS ORDERED: AZITHROMYCIN 250 MG TABLET PO ONE (21:06)
[2017-08-30 21:09] LABS: Troponin I Less than 0.017 ng/ml (0.00-0.10)
[2017-08-30 21:26] LABS: Prothrombin Time (Patient) 39.8 Seconds (9.0-11.0)
[2017-08-30] MEDS ORDERED: AZITHROMYCIN 250 MG TABLET ONE (21:30)
[2017-08-30 21:32] LABS: INR 3.93 INR (0.90-1.10)
--- NOTE | 2017-08-30 23:05 | HP ---
Chief Complaint - Chief Complaint Date of Service: 08/30/17 Time of Service: 23:00 Chief Complaint: " Worsening SOB & Coughing". Source of HPI- Pt; reliable, ERP report, History of Present Illness: Mr. Hathaway is a 67-yr-old WM who is normally seen by multiple specialty providers at the [facility]. His PMH is significant for Asthma, CAD, CVA, CHF, CKD stage 3, Depression, DM II, HTN, HLD, ME, Osteoathritis & PVD. Pt states that for the last one week, he has had SOB, but for a couple of days, his dyspnea progressed to being worse even with a short ambulation distance from the bedroom to his bathroom. He reports having worsening cough as well and had been bringing up thick yellow-greenish phlegm. He is unsure of fevers, but states that he has had occasional chills. He states that one week before developing SOB , he had URI symptoms. He was not getting any better with his SOB and chose to come to the ED tonight. Work-up at the ED involved CXR which showed he had RML/ RLL Pneumonia (official radiology report is pending). His dyspnea did not improve in spite of treatment with Nebulizers and IV corticosteroids and POX levels maintained 90-91% RA. Laboratory studies showed WBC --> 13,800 with a LT shift, BUN/CR--> 28/1.96, INR--> 3.96, BNP--> . He has a CURB- 65 score of 2 and with his major comorbidities, he will require a minimum stay of 2 midnights. - Patient's Past Medical History Patient History - Medical: Arthritis, Diabetes Type 2 Insulin Dependent, Depression, Other Patient History - Cardiac/Respiratory: Angina, Atrial Fibrillation, Arrhythmias , Coronary Heart Disease, CVA/Stroke, Hypertension, Myocardial Infarction, TIA, Other Patient History - Cancer: No Hx of Cancer Patient History - Surgical Procedures: Cataracts, Coronary Bypass Surgery, Total Knee Replacement, Other Patient History - Other: None - Family History Mother Family History - Medical: Family History - Cardiac/Respiratory: CVA/Stroke, Myocardial Infarction Father Family History - Medical: Family History - Cardiac/Respiratory: History Unknown - Social History Living Situations: home Abuse History: No History of abuse Psych History: Hx of Depression Smoking Status: Former smoker Do you dip or chew tobacco: No Alcohol Use: occasionally Drug Use: none - Immunizations Immunizations Up to Date: Yes Hx Pneumococcal Vaccination: Yes History of Influenza Vaccine: Yes Review Of Systems (GEN) - Review of Systems Generalized/Overall Review: Present: Weakness, Chills, Malaise. Absent: Fever EENTM: Present: Nose Congestion. Absent: Eye Pain, Blurred Vision, Tearing Respiratory: Present: Cough, Shortness of Breath. Absent: Orthopnea Cardiac: Absent: Chest Pain, Edema, Palpitations, Syncope Abdominal: Absent: Nausea, Vomiting, Hematemesis Genitourinary: Absent: Burning, Itching Musculoskeletal: Absent: Joint Pain, Back Pain, Joint Swelling Neurological: Absent: Headache, Anxiety, Depressed Skin: Absent: Dryness, Lesions, Lumps Endocrine: Present: Intolerance to Heat. Absent: Increased Hunger, Flushing, Increased Thirst Misc: All systems neg except as marked Allergies/Adverse Reactions: Allergies Allergy/AdvReac Type Severity Reaction Status Date / Time oxycodone AdvReac Other Verified 08/30/17 19:51 Home Medications: HOME MEDICATIONS Aspirin 81 mg PO DAILY 05/24/14 [Last Taken Unknown] Atorvastatin Calcium [Lipitor] 80 mg PO HS 05/24/14 [Last Taken Unknown] Cyanocobalamin (Vitamin B-12) [Vitamin B-12] 250 mg PO DAILY 05/24/14 [Last Taken Unknown] Multivitamin [Multi-Vitamin Daily] 1 tab PO DAILY 05/24/14 [Last Taken Unknown] Nitroglycerin 0.4 mg SL Q5MIN PRN 05/24/14 [Last Taken Unknown] PARoxetine HCL [Paxil] 20 mg PO DAILY 05/24/14 [Last Taken Unknown] Fluticasone Propionate [Flonase] 2 sprays ANGELA QDIPM PRN 06/29/15 [Last Taken Unknown] amLODIPine BESYLATE [Norvasc] 10 mg PO HS 06/29/15 [Last Taken Unknown] Fexofenadine HCl [Tanisha Allergy] 180 mg PO HS 07/07/16 [Last Taken Unknown] Lisinopril [Zestril] 40 mg PO HS 07/07/16 [Last Taken Unknown] Acetaminophen [Tylenol] 650 mg PO QID PRN #0 tablet 07/08/16 [Last Taken Unknown ] Furosemide [Lasix] 80 mg PO BID #60 tablet 07/08/16 [Last Taken Unknown] Potassium Chloride [Klor-Con 10] 20 meq PO BID #60 tablet.er 07/08/16 [Last Taken Unknown] Insulin Lispro [Humalog] 0 - 100 units SC ACHS 08/30/17 [Last Taken Unknown] Insulin Regular, Human [Novolin R] 50 unit IJ BID 08/30/17 [Last Taken Unknown] Warfarin Sodium [Coumadin] 7.5 mg PO 2XW 08/30/17 [Last Taken Unknown] Warfarin Sodium [Coumadin] 10 mg PO DAILY 08/30/17 [Last Taken 08/30/17 20:00] Exam - Exam Vital Signs: Vital Signs - Last Taken Temp 37.3 C 08/30/17 19:41 Pulse 98 08/30/17 22:08 Resp 24 H 08/30/17 22:08 BP 146/61 08/30/17 22:06 Pulse Ox 94 08/30/17 22:06 Constitutional: Present: Alert, Oriented x3, Cooperative, Mild distress ENT Exam: Present: normal ENT inspection Eye Exam: bilateral eye: normal inspection, PERRL Neck: Present: non-tender, full range of motion, supple Back Exam: Present: normal inspection, no CVA tenderness Breasts: Present: Exam deferred Respiratory: Present: decreased breath sounds - throughout the [place]. Cardiovascular/Chest: Present: systolic murmur, irregularly irregular Abdomen: Present: Normal bowel sounds, soft, nontender, obese /Rectal: Present: Exam deferred Extremity: Present: lower extremity edema - 1-2 + BLE tibial/pedal pitting edema Skin Exam: Present: warm/dry, no cyanosis Lymphatic: Present: no adenopathy Neurologic: Present: alert, normal mood/affect, oriented x 3 Appearance: Present: appropriate appearance, appropriate insight Eye contact: Present: cooperative, good eye contact, normal speech Thoughts: Present: normal thought pattern, no apparent hallucination Diagnostic Studies: Laboratory Results WBC 13.8 K/mm3 (4.0-10.5) H 08/30/17 20:43 RBC 4.37 M/mm3 (4.7-6.0) L 08/30/17 20:43 Hgb 11.1 gm/dL (13.5-18.0) L 08/30/17 20:43 Hct 34.4 % (42.0-52.0) L 08/30/17 20:43 MCV 78.7 fl (78-100) 08/30/17 20:43 MCH 25.4 pg (27-31) L 08/30/17 20:43 MCHC 32.3 g/dl (32-36) 08/30/17 20:43 RDW 16.6 % (11.5-14.0) H 08/30/17 20:43 Plt Count 247 K/mm3 (150-450) 08/30/17 20:43 MPV 10.4 fl (6.0-9.5) H 08/30/17 20:43 Immature Gran % (Auto) 0.50 % (0.001-0.429) H 08/30/17 20:43 Immature Gran # (Auto) 0.07 K/mm3 (0.000-0.0310) H 08/30/17 20:43 Neutrophils % 86.9 % (42-75.0) H 08/30/17 20:43 Lymphocytes % 6.1 % (20-51) L 08/30/17 20:43 Monocytes % 5.4 % (0.0-9) 08/30/17 20:43 Eosinophils % 0.7 % (0.0-3.0) 08/30/17 20:43 Basophils % 0.4 % (0.0-1.0) 08/30/17 20:43 Nucleated RBC % 0.0 k/mm3 (0-1) 08/30/17 20:43 Neutrophils # 12.0 K/mm3 (1.3-6.0) H 08/30/17 20:43 Lymphocytes # 0.84 k/mm3 (1.5-3.5) L 08/30/17 20:43 Monocytes # 0.8 k/mm3 (0.0-1.0) 08/30/17 20:43 Eosinophils # 0.1 k/mm3 (0.0-0.7) 08/30/17 20:43 Absolute Basophils 0.1 k/mm3 (0.0-0.1) 08/30/17 20:43 PT 39.8 Seconds (9.0-11.0) H 08/30/17 21:07 INR (Anticoag Therapy) 3.93 INR (0.90-1.10) H 08/30/17 21:07 Sodium 141 mmol/L (132-142) 08/30/17 20:43 Plasma Sodium 142 mmol/L (130-142) 08/30/17 20:43 Potassium 3.9 mmol/L (3.4-4.6) 08/30/17 20:43 Chloride 103 mmol/L (97-106) 08/30/17 20:43 Carbon Dioxide 26.2 mmol/L (24-32.6) 08/30/17 20:43 Anion Gap 15.7 mmol/L (6.8-13.8) H 08/30/17 20:43 BUN 28 mg/dL (6-23) H 08/30/17 20:43 Creatinine 1.96 mg/dL (0.4-1.4) H 08/30/17 20:43 Est GFR (Non-Af Amer) 37 mL/min (60-130) L D 08/30/17 20:43 BUN/Creatinine Ratio 14.3 (9.0-21.6) 08/30/17 20:43 Random Glucose 171 mg/dL (70-110) H 08/30/17 20:43 Calcium 8.7 mg/dL (7.9-10.9) 08/30/17 20:43 Calcium Adj for Albumin 8.8 mg/dL (8.4-10.2) 08/30/17 20:43 Total Bilirubin 0.9 mg/dL (0.0-1.1) 08/30/17 20:43 AST 18 U/L (0-48) 08/30/17 20:43 ALT 23 U/L (19-67) 08/30/17 20:43 Alkaline Phosphatase 109 U/L (50-170) 08/30/17 20:43 Troponin I Less than 0.017 ng/ml (0.00-0.10) 08/30/17 20:43 Total Protein 7.3 gm/dL (6.2-8.2) 08/30/17 20:43 Albumin 3.5 gm/dl (3.4-5.0) 08/30/17 20:43 Assessment/Plan - Assessment/Plan (1) Pneumonia Assessment: Pt presented with worsening coughing and SOB. CXR showed RML Pneuominia. WBC 13, 800 with a LT shift. Given Rocephin and Azithromycin at the ED and will continue until blood and sputum culture results. Will add Xopenex nebulizers and push Cornet q 2 hours. Monitor CBC in the morning. Problem: Acute Qualifiers: Laterality: right Lung location: middle lobe of lung (2) CHF exacerbation Assessment: Noted to have fluid overload signs- SOB, Pitting edema, BNP noted to be 967. Official CXR report is pending but suspect pulmonary edema is present. Is normally on Lasix 80 mg bid. Will give 80 IVP tonight to see if it will relieve dyspnea and also BLE edema. Monitor electrolytes, I/O, & Daily weight. Problem: Acute (3) CKD (chronic kidney disease) stage 3, GFR 30-59 ml/min Assessment: Laboratory Tests 09/15/15 09/19/15 07/07/16 21:30 12:42 09:35 Creatinine 1.45 H 2.30 H D 3.14 H D 07/08/16 08/30/17 05:57 20:43 Creatinine 2.73 H D 1.96 H Problem: Chronic (4) Diabetes Assessment: Continue with meal time insulin and Long acting insulin, consistent carb diet. Problem: Chronic Qualifiers: Diabetes mellitus type: type 2 (5) HTN (hypertension) Assessment: Stable- Continue Lisinopril and Amlodipine. Problem: Chronic Qualifiers: Hypertension type: essential hypertension Qualified Code(s): I10 - Essential (primary) hypertension (6) HLD (hyperlipidemia) Assessment: Stable- Continue Lipitor. Problem: Chronic (7) CHF (congestive heart failure) Problem: Chronic Qualifiers: Congestive heart failure type: systolic (8) CVA (cerebral vascular accident) Assessment: Stable- On Aspirin, Coumadin, Lipitor, Problem: Chronic
[2017-08-30] MEDS ORDERED: INSULIN REGULAR, HUMAN 100 UNITS/ML VIAL IJ SCH (23:45)
[2017-08-30] MEDS ORDERED: NITROGLYCERIN 0.4 MG/TAB BTL SL PRN (23:58)
[2017-08-30] MEDS ORDERED: ACETAMINOPHEN 325 MG TABLET PO PRN (23:58)
[2017-08-30] MEDS ORDERED: FLUTICASONE PROPIONATE 120 SPRAY INHALER NS PRN (23:58)
[2017-08-31] MEDS ORDERED: LEVALBUTEROL HCL 1.25 MG/3 ML AMPUL IH SCH
[2017-08-31] MEDS ORDERED: FUROSEMIDE 10 MG/ML VIAL IV SCH (00:30)
[2017-08-31] MEDS ORDERED: POTASSIUM CHLORIDE 20 MEQ TABLET.SA PO SCH (00:30)
[2017-08-31 05:53] LABS: Hematocrit 33.9 % (42.0-52.0); Hemoglobin 10.9 gm/dL (13.5-18.0); Mean Corpuscular Hemoglobin 25.4 pg (27-31); Mean Corpuscular Hgb Conc 32.2 g/dl (32-36); Mean Platelet Volume 10.9 fl (6.0-9.5); Neutrophil # 10.8 K/mm3 (1.3-6.0); Neutrophil % 95.6 % (42-75.0); Platelet Count 233 K/mm3 (150-450); Red Blood Count 4.29 M/mm3 (4.7-6.0); Red Cell Distribution Width 16.4 % (11.5-14.0); White Blood Count 11.3 K/mm3 (4.0-10.5)
[2017-08-31 06:02] LABS: Prothrombin Time (Patient) 39.7 Seconds (9.0-11.0)
[2017-08-31 06:03] LABS: Anion Gap 16.7 mmol/L (6.8-13.8); Calcium * 8.5 mg/dL (7.9-10.9); Estimated Creat Clear 36.9; Potassium 3.7 mmol/L (3.4-4.6)
[2017-08-31 06:04] LABS: INR 3.92 INR (0.90-1.10)
[2017-08-31] MEDS: LEVALBUTEROL HCL 1.25 MG/3 ML AMPUL IH SCH ×3 (06:22→18:02)
--- NOTE | 2017-08-31 06:39 | PN ---
Subjective - Date and Time Seen Date: 08/31/17 Time: 06:31 Subjective Narrative: Pt examined this morning. States coughing kept him awake and SOB. LS improved from being very diminished last night. No other acute events overnight. Objective - Vitals Vitals: Last Vital Signs Temp 36.8 C 08/30/17 23:12 Pulse 80 08/31/17 06:22 Resp 20 08/31/17 06:22 BP 105/74 08/31/17 00:32 Pulse Ox 95 08/31/17 06:22 - Abnormal Lab Findings Abnormal Lab Findings: Abnormal Lab Results 08/30/17 08/31/17 08/31/17 Range/Units 23:04 05:49 05:49 WBC 11.3 H (4.0-10.5) K/mm3 RBC 4.29 L (4.7-6.0) M/mm3 Hgb 10.9 L (13.5-18.0) gm/dL Hct 33.9 L (42.0-52.0) % MCH 25.4 L (27-31) pg RDW 16.4 H (11.5-14.0) % MPV 10.9 H (6.0-9.5) fl Immature Gran % (Auto) 0.60 H (0.001-0.429) % Immature Gran # (Auto) 0.07 H (0.000-0.0310) K/mm3 Neutrophils % 95.6 H (42-75.0) % Lymphocytes % 3.0 L (20-51) % Neutrophils # 10.8 H (1.3-6.0) K/mm3 Lymphocytes # 0.34 L (1.5-3.5) k/mm3 PT (9.0-11.0) Seconds INR (Anticoag Therapy) (0.90-1.10) INR Plasma Sodium 143 H (130-142) mmol/L Anion Gap 16.7 H (6.8-13.8) mmol/L BUN 31 H (6-23) mg/dL Creatinine 2.06 H (0.4-1.4) mg/dL Est GFR (Non-Af Amer) 35 L (60-130) mL/min Random Glucose 195 H (70-110) mg/dL B-Natriuretic Peptide 967 H (5-350) pg/mL 03/21/18 Range/Units 05:49 WBC (4.0-10.5) K/mm3 RBC (4.7-6.0) M/mm3 Hgb (13.5-18.0) gm/dL Hct (42.0-52.0) % MCH (27-31) pg RDW (11.5-14.0) % MPV (6.0-9.5) fl Immature Gran % (Auto) (0.001-0.429) % Immature Gran # (Auto) (0.000-0.0310) K/mm3 Neutrophils % (42-75.0) % Lymphocytes % (20-51) % Neutrophils # (1.3-6.0) K/mm3 Lymphocytes # (1.5-3.5) k/mm3 PT 39.7 H (9.0-11.0) Seconds INR (Anticoag Therapy) 3.92 H (0.90-1.10) INR Plasma Sodium (130-142) mmol/L Anion Gap (6.8-13.8) mmol/L BUN (6-23) mg/dL Creatinine (0.4-1.4) mg/dL Est GFR (Non-Af Amer) (60-130) mL/min Random Glucose (70-110) mg/dL B-Natriuretic Peptide (5-350) pg/mL - Exam Constitutional: Present: Alert, Oriented x3, Cooperative ENT Exam: Present: normal ENT inspection Neck: Present: non-tender, full range of motion, supple Breasts: Present: Exam deferred Respiratory: Present: no accessory muscle use, No rales, No wheezing Cardiovascular/Chest: Present: systolic murmur, irregularly irregular Abdomen: Present: Normal bowel sounds, soft, nontender, obese /Rectal: Present: Exam deferred Extremity: Present: normal range of motion, non-tender, normal inspection Skin Exam: Present: warm/dry, no cyanosis Lymphatic: Present: no adenopathy Neurologic: Present: no motor/sensory deficits, alert, normal mood/affect Appearance: Present: appropriate appearance, appropriate insight Eye contact: Present: cooperative, good eye contact, normal speech Thoughts: Present: normal thought pattern, no apparent hallucination Assessment/Plan - Problems/Diagnosis (1) Pneumonia Problem: Acute Qualifiers: Laterality: right Lung location: middle lobe of lung Narrative: Pt presented with worsening coughing and SOB. CXR showed RML Pneuominia. WBC 13, 800 with a LT shift. Given Rocephin and Azithromycin at the ED and will continue until blood and sputum culture results. Will add Xopenex nebulizers and push Cornet q 2 hours. Monitor CBC in the morning. Laboratory Tests 08/30/17 08/31/17 20:43 05:49 WBC 13.8 H 11.3 H Neutrophils % 86.9 H 95.6 H (2) CHF exacerbation Problem: Acute Narrative: Noted to have fluid overload signs- SOB, Pitting edema, BNP noted to be 967. Official CXR report is pending but suspect pulmonary edema is present. Is normally on Lasix 80 mg bid. Will give 80 IVP tonight to see if it will relieve dyspnea and also BLE edema. Monitor electrolytes, I/O, & Daily weight (3) CKD (chronic kidney disease) stage 3, GFR 30-59 ml/min Problem: Chronic Narrative: Laboratory Tests 07/07/16 07/08/16 08/30/17 09:35 05:57 20:43 Creatinine 3.14 H D 2.73 H D 1.96 H 08/31/17 05:49 Creatinine 2.06 H (4) Diabetes Problem: Chronic Qualifiers: Diabetes mellitus type: type 2 Narrative: Continue with meal time insulin and Long acting insulin, consistent carb diet. (5) HTN (hypertension) Problem: Chronic Qualifiers: Hypertension type: essential hypertension Qualified Code(s): I10 - Essential (primary) hypertension Narrative: Stable- Continue Lisinopril and Amlodipine. (6) HLD (hyperlipidemia) Problem: Chronic (7) CHF (congestive heart failure) Problem: Chronic Qualifiers: Congestive heart failure type: systolic (8) CVA (cerebral vascular accident) Problem: Chronic Narrative: Stable- On Aspirin, Coumadin, Lipitor.
[2017-08-31] MEDS ORDERED: INSULIN REGULAR, HUMAN 100 UNITS/ML VIAL SC SCH (07:00)
[2017-08-31] MEDS: INSULIN LISPRO 100 UNITS/ML VIAL SC SCH ×3 (08:07→17:56)
[2017-08-31] MEDS: POTASSIUM CHLORIDE 20 MEQ TABLET.SA PO SCH ×2 (08:08→17:57)
[2017-08-31] MEDS ORDERED: ASPIRIN 81 MG TABLET.DR PO SCH (09:00)
[2017-08-31] MEDS ORDERED: PARoxetine HCL 20 MG TABLET PO SCH (09:00)
[2017-08-31] MEDS ORDERED: CYANOCOBALAMIN 1,000 MCG TABLET PO SCH (09:00)
[2017-08-31] MEDS ORDERED: MULTIVITAMINS 1 CAP CAPSULE PO SCH (09:00)
--- NOTE | 2017-08-31 09:45 | DS ---
(1) Acute bronchitis Problem: Acute Qualifiers: Bronchitis organism: unspecified organism Qualified Code(s): J20.9 - Acute bronchitis, unspecified (2) CHF exacerbation Diagnosis(s): acute on chronic. resolved clinically. Problem: Resolved Qualifiers: Congestive heart failure type: combined Qualified Code(s): I50.43 - Acute on chronic combined systolic (congestive) and diastolic (congestive) heart failure (3) CKD (chronic kidney disease) stage 3, GFR 30-59 ml/min Problem: Chronic (4) Diabetes Problem: Chronic Qualifiers: Diabetes mellitus type: type 2 (5) HLD (hyperlipidemia) Problem: Chronic (6) HTN (hypertension) Problem: Chronic Qualifiers: Hypertension type: essential hypertension Qualified Code(s): I10 - Essential (primary) hypertension Description of Stay: Ray Hathaway is a 67-yr-old WM who is normally seen by multiple specialty providers at the [facility], with PMH is significant for Asthma, CAD, CVA, CHF, CKD stage 3, Depression, DM II, HTN, HLD, [place], Osteoathritis & PVD, who was admitted on 08/30/2017 for SOB/Cough/wheezing. For the last one week, he has had SOB, but for a couple of days, his dyspnea progressed to being worse even with a short ambulation distance from the bedroom to his bathroom. He reports having worsening cough as well and had been bringing up thick yellow-greenish phlegm associated with wheezing. He is unsure of fevers, but states that he has had occasional chills. One week before developing SOB, he had URI symptoms. He was not getting any better with his SOB and so he went to the ED. Work-up at the ED involved CXR which showed he had fndings consistent with pulmonary edema/CHF. His dyspnea did not improve in spite of treatment with Nebulizers and IV corticosteroids and POX levels maintained 90-91% RA. Laboratory studies showed WBC -13,800 with a LT shift, BUN/CR-28/1.96, INR- 3.9. He was given IV lasix x 1 and continued with his breathing treatments, IV antibioitcs, IV Solumedrol. He improved significantly and has been walking the hallway with O2 saturations in the 95-97% on RA. We will discharge him on po antibiotics, inhalers and nebulizers and when he is much better he will need a PFT to see if he has COPD. He has a follow up appointment with his PCP next week Procedures Performed: none Discharge Location: Home Disposition: Home self-care Condition: Good Discharge Activity: Activity as tolerated Discharge Diet: Consistent carbs, Low salt Problem Oriented Discharge Instructions to Patient/Family: Heart Failure, Easy- to-Read Additional Patient Instructions (free text): Keep your appointments in [place] next week on Tuesday as scheduled. Prescriptions (Any new or edited meds): Albuterol Sulfate [Proair Hfa] 1 - 2 puff IH Q4H PRN #1 inhaler PRN Reason: Shortness Of Breath Azithromycin [Zithromax] 250 mg PO DAILY 5 Days #5 tablet Levalbuterol HCl [Xopenex] 1.25 mg IH TID #7 ampul predniSONE [Deltasone] 20 mg PO DAILY #5 tablet Warfarin Sodium [Coumadin] 5 mg PO DAILY #30 tablet Complete Home Medications List: Complete Home Medication List: Aspirin 81 mg PO DAILY 05/24/14 Atorvastatin Calcium [Lipitor] 80 mg PO HS 05/24/14 Cyanocobalamin (Vitamin B-12) [Vitamin B-12] 250 mg PO DAILY 05/24/14 Multivitamin [Multi-Vitamin Daily] 1 tab PO DAILY 05/24/14 Nitroglycerin 0.4 mg SL Q5MIN PRN 05/24/14 PARoxetine HCL [Paxil] 20 mg PO DAILY 05/24/14 Fluticasone Propionate [Flonase] 2 sprays ANGELA DAILY PRN 06/29/15 amLODIPine BESYLATE [Norvasc] 10 mg PO HS 06/29/15 Fexofenadine HCl [Tanisha Allergy] 180 mg PO HS 07/07/16 Lisinopril [Zestril] 40 mg PO HS 07/07/16 Acetaminophen [Tylenol] 650 mg PO QID PRN #0 tablet 07/08/16 Furosemide [Lasix] 80 mg PO BID #60 tablet 07/08/16 Potassium Chloride [Klor-Con 10] 20 meq PO BID #60 tablet.er 07/08/16 Albuterol Sulfate [Proair Hfa] 1 - 2 puff IH Q4H PRN #1 inhaler 08/31/17 Azithromycin [Zithromax] 250 mg PO DAILY 5 Days #5 tablet 08/31/17 Insulin NPH Human Recom [Novolin N] 50 units SQ BID@0700,2100 08/31/17 Levalbuterol HCl [Xopenex] 1.25 mg IH TID #7 ampul 08/31/17 Warfarin Sodium [Coumadin] 5 mg PO DAILY #30 tablet 08/31/17 predniSONE [Deltasone] 20 mg PO DAILY #5 tablet 08/31/17
[2017-08-31] MEDS ORDERED: ATORVASTATIN CALCIUM 40 MG TABLET PO SCH (21:00)
[2017-08-31] MEDS ORDERED: [UNRECOGNIZED DRUG - OTHER] SC SCH (21:00)
[2017-08-31] MEDS ORDERED: amLODIPine BESYLATE 10 MG TABLET PO SCH (21:00)
[2017-08-31] MEDS ORDERED: cefTRIAXone SODIUM 1,000 MG in DEXTROSE 5 % IN WATER 50 ML IV SCH ×2 (21:00)
[2017-08-31] MEDS ORDERED: INSULIN NPH HUMAN ISOPHANE 100 UNITS/ML VIAL SC SCH (21:00)
[2017-08-31] MEDS ORDERED: LORATADINE 10 MG TABLET PO SCH (21:00)
[2017-08-31] MEDS ORDERED: LISINOPRIL 40 MG TABLET PO SCH (21:00)
[2017-09-01 03:27] VITALS: BP 127/43
[2017-09-01] MEDS ORDERED: AZITHROMYCIN 250 MG TABLET PO SCH (09:00)
== END 2017-08-31 19:50 | disposition home or self-care (01) ==
LOC: ER 19:37 → MS 22:40 → INTOOBSV 22:40
PROVIDERS: ADMIT Nurse Practitioner; ATTEND Internal Medicine
DX: I12.9 Hypertensive chronic kidney disease with stage 1 through stage 4 chronic kidney disease, or unspecified chronic kidney disease; E11.9 Type 2 diabetes mellitus without complications; J44.0 Chronic obstructive pulmonary disease with (acute) lower respiratory infection; Z87.891 Personal history of nicotine dependence; Z79.82 Long term (current) use of aspirin; E78.5 Hyperlipidemia, unspecified; Z68.41 Body mass index [BMI] 40.0-44.9, adult; I48.2 Chronic atrial fibrillation; Z95.1 Presence of aortocoronary bypass graft; N18.3 Chronic kidney disease, stage 3 (moderate); J44.1 Chronic obstructive pulmonary disease with (acute) exacerbation; Z79.4 Long term (current) use of insulin; J20.9 Acute bronchitis, unspecified; Z79.01 Long term (current) use of anticoagulants; I50.23 Acute on chronic systolic (congestive) heart failure
CPT/HCPCS: 36415; 71046; 80048; 80053; 83880; 84484; 85025; 85610; 87040; 87070; 87400; 93005; 94640; 96365; 96372; 96375; 99284; G0378